=== PATIENT | female | born 1985 | race African-American/Black ===

== ENCOUNTER 2022-03-29 04:36 | Inpatient (IN) ==
[2022-03-29] MEDS ORDERED: ceFAZolin 2 GM in NS PREMIX 2 GM/100 ML BAG IVPB ONE (06:31)
[2022-03-29] MEDS ORDERED: Lactated Ringers 1000 ml BAG 1,000 ML IV ONE ×2 (06:31→10:58)
[2022-03-29] MEDS ORDERED: Buffered Lidocaine 1% SYRIN 1 ml INTRADERM ONE (06:31)
[2022-03-29] MEDS ORDERED: Lactated Ringers 1000 ml BAG 1,000 ML IV SCH ×4 (07:00→21:00)
[2022-03-29] MEDS ORDERED: LEVOTHYROXINE SCH (07:15)
[2022-03-29] MEDS ORDERED: Ondansetron 4 mg VIAL 2 MG/ML 2 ml VIAL IV PRN (07:41)
[2022-03-29 07:50] LABS: ABS Lymphocytes 2.6 10^3/ul (1.0-4.8); ABS Neutrophils 9.5 10^3/ul (1.5-7.7); Eosinophil % 0.4 %; Hematocrit 28 % (35-47); Hemoglobin 9.3 g/dL (12.0-16.0); Lymphocyte % 19.5 %; Mean Corpuscular HGB Conc 33 g/dL (31-36); Mean Corpuscular Hemoglobin 26 pg (27-31); Mean Corpuscular Volume 80 fL (80-97); Platelet Count 313 10^3/uL (150-450); Red Blood Count 3.56 10^6 /uL (3.70-4.87); Red Cell Distribution Width 15 % (10-15); White Blood Count 13.1 10^3/uL (3.5-10.8)
[2022-03-29 08:17] LABS: Urine Benzodiazepine Screen None Detected (None Detect); Urine Cannabinoids Screen None Detected (None Detect); Urine Opiates Screen None Detected (None Detect)
[2022-03-29] MEDS ORDERED: Metoclopramide 5 MG/ML VIAL (10 mg) IV SLOW PU ONE ×2 (09:30→18:16)
[2022-03-29] MEDS ORDERED: OBEPIDURAL (200 ML) 200 ML EPIDURAL ONE (10:09)
[2022-03-29] MEDS ORDERED: Lidocaine 1.5% EPI 1:200,000 30 ML SDV ONE (10:22)
[2022-03-29] MEDS ORDERED: Lactated Ringers 1000 ml BAG 500 ML IV PRN (10:58)
[2022-03-29] MEDS ORDERED: Phenylephrine 40 mcg/mL 10mL (400mcg) SYRINGE IV PUSH PRN ×2 (10:58)
[2022-03-29] MEDS ORDERED: Sodium Citrate/Citric Acid LIQ 15 ML UDC PO PRN (10:58)
[2022-03-29] MEDS ORDERED: OBEPIDURAL (200 ML) 200 ML EPIDURAL SCH (11:00)
[2022-03-29 11:24] LABS: Urine Appearance Clear; Urine Bilirubin Negative (Negative); Urine Blood Trace (Intact) (Negative); Urine Color Yellow; Urine Glucose Negative (Negative); Urine Ketones 4+ (>=160mg/dL) (Negative); Urine Protein Trace (Negative); Urine Urobilinogen 0.2 (Negative) (Negative)
[2022-03-29 11:25] LABS: Urine Nitrite Negative (Negative)
[2022-03-29 11:27] LABS: Urine Bacteria Absent (Absent); Urine Red Blood Cell 2+(6-10/hpf) (Absent); Urine Squamous Epithelial Cell Present (Absent); Urine Transitional Epithelial Present (Absent); Urine White Blood Cell Trace(0-5/hpf) (Absent)
[2022-03-29 11:28] LABS: Urine Specific Gravity 1.024 (1.002-1.030)
[2022-03-29] MEDS ORDERED: Oxytocin in LR 20,000 MILLI.UNIT/1,000 ML BAG IV SCH ×2 (12:45→20:45)
[2022-03-29] MEDS ORDERED: ceFAZolin 1 GM in Dextrose 1 GM/50 ML BAG IVPB SCH (15:00)
[2022-03-29] MEDS ORDERED: ceFAZolin VIAL 1 GM in NS 0.9% 50 ML 50 ML IVPB SCH (15:00)
[2022-03-29] MEDS ORDERED: fentaNYL 100 mcg/2 ml 50 MCG/ML VIAL ONE (16:43)
[2022-03-29] MEDS ORDERED: Lidocaine 2% w/ EPI 1:200,000 MPF 20 ML SDV VIAL ONE (16:43)
[2022-03-29] MEDS ORDERED: Dibucaine 1% OINT 28.35 GM TUBE ONE (19:59)
[2022-03-29] MEDS ORDERED: Witch Hazel PAD JAR ONE (20:01)
[2022-03-29] MEDS ORDERED: Witch Hazel PAD JAR TOPICAL PRN (20:39)
[2022-03-29] MEDS ORDERED: Dibucaine 1% OINT 28.35 GM TUBE PR PRN (20:39)
[2022-03-29] MEDS ORDERED: Measles, Mumps,Rubella VACC 0.5 ML/VIAL SUBCUT ONE (20:39)
[2022-03-29] MEDS ORDERED: Glycerin ADULT 2.4 gm SUPP PR PRN (20:39)
[2022-03-29] MEDS ORDERED: Lidocaine 1% VIAL 10 MG/ML VIAL ONE (22:46)
[2022-03-30 07:16] LABS: ABS Basophils 0.1 10^3/ul (0-0.2); ABS Lymphocytes 2.3 10^3/ul (1.0-4.8); ABS Monocytes 1.5 10^3/ul (0-0.8); ABS Neutrophils 13.1 10^3/ul (1.5-7.7); Eosinophil % 0.1 %; Hematocrit 24 % (35-47); Hemoglobin 7.9 g/dL (12.0-16.0); Lymphocyte % 13.3 %; Mean Corpuscular HGB Conc 33 g/dL (31-36); Mean Corpuscular Hemoglobin 26 pg (27-31); Mean Corpuscular Volume 79 fL (80-97); Mean Platelet Volume 6.8 fL (7.4-10.4); Nucleated Red Blood Cells % 0.1; Platelet Count 275 10^3/uL (150-450); Red Blood Count 3.04 10^6 /uL (3.70-4.87); Red Cell Distribution Width 15 % (10-15)
[2022-03-30] MEDS ORDERED: Witch Hazel PAD JAR TOPICAL SCH (09:00)
[2022-03-30] MEDS ORDERED: Iron Sucrose 200 MG in NS 0.9% 100 ml BAG 100 ML IVPB ONE (13:30)
[2022-03-30] MEDS ORDERED: Measles, Mumps,Rubella VACC 0.5 ML/VIAL ONE (20:51)
[2022-03-31 09:42] VITALS: BP 107/69
== END 2022-03-31 15:58 | disposition home or self-care (01) | DRG 560 ==
LOC: MCHOBOUT 04:36 → MCHOB 06:30
PROVIDERS: ADMIT Midwife; ATTEND Midwife